=== PATIENT | female | born 1965 | race Two or more races ===

== ENCOUNTER 2018-06-15 01:22 | Emergency (ER) | payer MEDICAID | END 2018-06-15 03:47 | disposition home or self-care (01) | LOC: E/R 01:22 | DX: R10.84 Generalized abdominal pain (principal); R11.2 Nausea with vomiting, unspecified; R19.7 Diarrhea, unspecified; F41.9 Anxiety disorder, unspecified | CPT/HCPCS: 99283; Z7502 ==